=== PATIENT | male | born 1950 | race Caucasian/White ===

== ENCOUNTER 2019-01-08 21:00 | Emergency (ER) | payer MEDICARE, OTHER, SELFPAY ==
[2019-01-08 21:04] VITALS: BP 188/81; PULSE 77; RESP 18; TEMP 36.6; O2SAT 98
--- NOTE | 2019-01-08 21:28 | ED.MALEGU ---
HPI - Male Genitourinary General Chief complaint: Urogenital-Male Stated complaint: KIDNEY STONES Time Seen by Provider: 01/08/19 21:11 Source: patient Mode of arrival: ambulatory Limitations: no limitations History of Present Illness HPI Narrative: The patient was diagnosed with left ureter stones and a left renal stone 15 December 2018. He lives in [place], the CT confirming the diagnosis was done there. He had his since been traveling on motorcycles, greater than 2000 miles. He is not screened his urine, but is not notice passing the stone. His urine output has been normal. He has no hematuria or dysuria. He has been treating symptoms with Motrin, which has been adequate to about 3 hours ago. He now has left severe flank pain. he has no fever or chills. He has no nausea vomiting. in addition ibuprofen he is taking Flomax. He has remote history of a 1st kidney stone 18 years ago. Related Data Previous Rx's Medication Instructions Recorded tramadol 50 mg PO Q6-8H PRN #20 tab 01/08/19 Allergies Allergy/AdvReac Type Severity Reaction Status Date / Time No Known Drug Allergies Allergy Verified 01/08/19 21:06 Review of Systems Review of Systems ROS Unobtainable: All systems reviewed & are unremarkable except as noted in HPI and below Constitutional Denies chills, Denies fever(s) and Denies weakness Cardiovascular Denies chest pain, Denies lightheadedness, Denies palpitations and Denies dyspnea Respiratory Denies dyspnea Gastrointestinal Gastrointestinal: Denies abdominal pain, Denies change in bowel habits, Denies nausea and Denies vomiting Genitourinary Denies hematuria, Reports flank pain (Left side), Denies testicular pain and Denies urinary frequency Musculoskeletal Reports back pain and Denies muscle weakness Integumentary/Breasts Denies rash Neurologic Denies weakness Endocrine Denies palpitations [facility] Medical History (Updated 01/08/19 @ 23:51 by Angel Nicole MD) Kidney stones (Acute) Surgical History (Updated 01/08/19 @ 21:37 by Angel Nicole MD) No pertinent past surgical history (Acute) Social History (Updated 01/08/19 @ 21:38 by Angel Nicole MD) Smoking Status: Former smoker additional social history: The patient resides in [place], is visiting locally. Social History (Updated 01/08/19 @ 21:38 by Angel Nicole MD) Smoking Status: Former smoker additional social history: The patient resides in [place], is visiting locally. Exam Initial Vital Signs Initial Vital Signs: Vital Signs Temperature 97.8 F 01/08/19 21:04 Pulse Rate 77 01/08/19 21:04 Respiratory Rate 18 01/08/19 21:04 Blood Pressure 188/81 H 01/08/19 21:04 Pulse Oximetry 98 01/08/19 21:04 Const General: cooperative and well developed Nutritional Appearance: well nourished Orientation: alert, awake and oriented x3 Resp Auscultation: clear to auscultation bilaterally Cardio Rate: regular rate Rhythm: regular rhythm Heart Sounds: S1 normal, S2 normal and no murmurs GI Inspection: non-distended Palpation: soft, no hepatosplenomegaly, No guarding and No tender Auscultation: normal bowel sounds Back/Spine/Pelvis Back: No CVA tenderness Skin General: no rashes or lesions noted and No petechiae Neuro General: alert, oriented x3, gait normal and no focal motor deficits Speech: speech normal Extrem General: No calf tenderness and No edema Psych Appearance: well kempt Mental Status: mental status grossly normal Attitude: cooperative Thought Content: normal Judgment: judgment good Course Course Narrative: The patient's pain was improved with IV Dilaudid. He take Motrin within 3 hours of arrival, Toradol was not given. He has no plans to return home to [place] for about the next 3 weeks. His urine is clear, but his clinical history suggests he may have an an obstruction due left ureter associated with kidney stones. He was referred to a local urologist, he may require urine but Urology attention before return to his home [place]. Orders Ordered: ED Orders 01/08/19 21:25 CMP [Comprehensive Metabolic Panel] Stat Complete Blood Count AUTO DIFF Stat Prothrombin Time INR Stat 01/08/19 21:27 XR KUB Stat Discontinued Medications Hydromorphone HCl (Dilaudid) 1 mg IV NOW ONE Stop: 01/08/19 21:13 Last Admin: 01/08/19 21:29 Dose: 1 mg Sodium Chloride (Normal Saline 0.9%) 1,000 mls @ 1,000 mls/hr IV BOLUS ONE Stop: 01/08/19 22:11 Last Infusion: 01/08/19 22:35 Dose: 1,000 mls/hr Admin: 01/08/19 21:29 Dose: 1,000 mls/hr Tramadol HCl (Ultram 50mg Prepack) 1 bottle MISC SEEINSTR ONE Stop: 01/08/19 23:29 Last Admin: 01/08/19 23:35 Dose: 1 bottle Vital Signs - 8 hr 01/08/19 21:04 01/09/19 00:03 Temperature 97.8 F Pulse Rate 77 71 Respiratory Rate 18 18 Blood Pressure 188/81 H 168/80 H Pulse Oximetry 98 98 MDM - Male Genitourinary Lab Data Result diagrams: 01/08/19 21:25 01/08/19 21:25 Lab Results 01/08/19 01/08/19 01/08/19 Range/Units 21:25 21:25 21:25 WBC 10.5 (4.5-11.0) X10^3/uL RBC 4.16 L (4.5-5.9) X10^6/uL Hgb 12.6 L (13.5-17.5) g/dL Hct 36.2 L (41-53) % MCV 87.0 (80-100) fL MCH 30.2 (26-34) PG MCHC 34.8 (30-36) % RDW 13.0 (11.6-14.8) % Plt Count 287 (150-400) X10^3/uL Neut % (Auto) 82.6 H (50-75) % Lymph % (Auto) 8.4 L (25-40) % [place] % (Auto) 7.7 (3-14) % Eos % (Auto) 0.7 L (2-4) % Baso % (Auto) 0.6 (0-2) % Neut # (Auto) 8700 H (3244-5256) /uL Lymph # (Auto) 900 L (2411-6265) /uL [place] # (Auto) 800 (0-900) /uL Eos # (Auto) 100 (0-450) /uL Baso # (Auto) 100 (0-100) /uL PT 13.7 H (10.1-12.7) SECONDS INR 1.2 (0.9-1.3) Sodium 135 L (137-145) mmol/L Potassium 4.0 (3.4-5.1) mmol/L Chloride 101 (98-107) mmol/L Carbon Dioxide 23 (22-32) mmol/L BUN 24 H (9-20) mg/dL Creatinine 1.40 H (0.66-1.25) mg/dL Estimated GFR 50.5 L (>60) mL/min BUN/Creatinine Ratio 17.1 (6-22) Glucose 167 H (80-110) mg/dL Calcium 9.2 (8.4-10.2) mg/dL Total Bilirubin 0.6 (0.2-1.3) mg/dL AST 24 (17-59) IU/L ALT 26 (21-72) IU/L Alkaline Phosphatase 110 (38-126) U/L Total Protein 7.2 (6.3-8.2) g/dL Albumin 3.9 (3.5-5.0) g/dL Globulin 3.3 (1.7-4.1) g/dL Albumin/Globulin Ratio 1.2 (1.0-2.8) Urine Dip Bedside Urine Glucose Negative Bedside Urine Bilirubin - Negative Bedside Urine Ketone - Negative Urine Specific [place] 1.015 Bedside Urine Occult Blood - Negative Bedside Urine pH 6.0 Bedside Urine Protein - Negative Bedside Urine Urobilinogen - Negative Bedside Urine Nitrite - Negative Bedside Urine Leukocytes - Negative Esterase Imaging Data KUB XR:: Radiologist's impression: [address] [address] XRay Report Signed Patient: Emmett Meyer LMR#: [id number] : 2Acct:[id number] Age/Sex: 68 / MDate of Service: 01/08/19 Loc: ED Accession Number: [id number] Procedure: XR KUB Ordering Provider: Angel Nicole MD PROCEDURE: XR KUB INDICATIONS: Recent left proximal ureter stones x2and a 5 mm renal stone. TECHNIQUE: One view of the abdomen acquired. COMPARISON: None. FINDINGS: Surgical changes and devices: None. Bowel: Bowel gas pattern is normal. Soft tissues: Within the abdomen in the expected position of the lower third collecting system of the left kidney there is a 3 x 4 mm calculus and in the expected position of the middle third of the left ureter there is a 4 x 5 mm calculus. More inferiorly and is potential areas of the distal right and left ureter is ovoid calcifications are present, potentially urinary tract stones within the ureters. However, pelvic phleboliths also could produce this appearance.. Visualized solid organ contours appear normal in size. Bones: No suspicious bony lesions. IMPRESSION: Multiple ovoid calcifications ranging in size from 2 mm to 5 mm are present along the potential course of the ureters bilaterally through the lower abdomen and pelvis, and also there is a ovoid calculus versus phlebolith overlying the expected position of the lower third left renal collecting system. All of these calcifications could represent phleboliths. CT KUB couldn't accurately establish their position. Dictated by: Haider Casper M.D. on 01/08/2019 at 21:46 Approved by: Haider Casper M.D. on 01/08/2019 at 21:49 Discharge Plan Departure Patient Disposition: Home Clinical Impression: Kidney stone on left side Discharge Date/Time: 01/08/19 23:52 Interventions: ED Discharge Assessment Last Done: 01/09/19 00:03 Instructions: DI for Kidney Stones Activity Restrictions/Additional Instructions: Continue taking ibuprofen 600 mg every 6 hours as needed for pain. Tramadol every 6 hours as necessary for added pain control. Drink plenty of water. Screening her urine looking for a stone. You need to make arrange follow-up with urologist when she returns home to [place], or follow up with a local urologist. I will give you contact information for Dr. Chappell. Call his office Friday for an appointment. Return to the ER as necessary. Prescriptions: New tramadol 50 mg tablet 50 mg PO Q6-8H PRN (Reason: pain) Qty: 20 RF: 0 Referrals: David Chappell MD [Physician] -
[2019-01-08] MEDS: HYDROMORPHONE 1 MG INJ IV (21:29)
[2019-01-08] MEDS: SODIUM CHLORIDE 0.9% 1,000 ML 1000 ML IV (21:29)
--- NOTE | 2019-01-08 21:31 | ED_ITS ---
HPI - Male Genitourinary General Chief complaint: Urogenital-Male Stated complaint: KIDNEY STONES Time Seen by Provider: 01/08/19 21:11 Source: patient Mode of arrival: ambulatory Limitations: no limitations History of Present Illness HPI Narrative: The patient was diagnosed with left ureter stones and a left renal stone 15 December 2018. He lives in [place], the CT confirming the diagnosis was done there. He had his since been traveling on motorcycles, greater than 2000 miles. He is not screened his urine, but is not notice passing the stone. His urine output has been normal. He has no hematuria or dysuria. He has been treating symptoms with Motrin, which has been adequate to about 3 hours ago. He now has left severe flank pain. he has no fever or chills. He has no nausea vomiting. in addition ibuprofen he is taking Flomax. He has remote history of a 1st kidney stone 18 years ago. Related Data Previous Rx's Medication Instructions Recorded tramadol 50 mg PO Q6-8H PRN #20 tab 01/08/19 Allergies Allergy/AdvReac Type Severity Reaction Status Date / Time No Known Drug Allergies Allergy Verified 01/08/19 21:06 Review of Systems Review of Systems ROS Unobtainable: All systems reviewed & are unremarkable except as noted in HPI and below Constitutional Denies chills, Denies fever(s) and Denies weakness Cardiovascular Denies chest pain, Denies lightheadedness, Denies palpitations and Denies dyspnea Respiratory Denies dyspnea Gastrointestinal Gastrointestinal: Denies abdominal pain, Denies change in bowel habits, Denies nausea and Denies vomiting Genitourinary Denies hematuria, Reports flank pain (Left side), Denies testicular pain and Denies urinary frequency Musculoskeletal Reports back pain and Denies muscle weakness Integumentary/Breasts Denies rash Neurologic Denies weakness Endocrine Denies palpitations [facility] Medical History (Updated 01/08/19 @ 23:51 by Angel Nicole MD) Kidney stones (Acute) Surgical History (Updated 01/08/19 @ 21:37 by Angel Nicole MD) No pertinent past surgical history (Acute) Social History (Updated 01/08/19 @ 21:38 by Angel Nicole MD) Smoking Status: Former smoker additional social history: The patient resides in [place], is visiting locally. Social History (Updated 01/08/19 @ 21:38 by Angel Nicole MD) Smoking Status: Former smoker additional social history: The patient resides in [place], is visiting locally. Exam Initial Vital Signs Initial Vital Signs: Vital Signs Temperature 97.8 F 01/08/19 21:04 Pulse Rate 77 01/08/19 21:04 Respiratory Rate 18 01/08/19 21:04 Blood Pressure 188/81 H 01/08/19 21:04 Pulse Oximetry 98 01/08/19 21:04 Const General: cooperative and well developed Nutritional Appearance: well nourished Orientation: alert, awake and oriented x3 Resp Auscultation: clear to auscultation bilaterally Cardio Rate: regular rate Rhythm: regular rhythm Heart Sounds: S1 normal, S2 normal and no murmurs GI Inspection: non-distended Palpation: soft, no hepatosplenomegaly, No guarding and No tender Auscultation: normal bowel sounds Back/Spine/Pelvis Back: No CVA tenderness Skin General: no rashes or lesions noted and No petechiae Neuro General: alert, oriented x3, gait normal and no focal motor deficits Speech: speech normal Extrem General: No calf tenderness and No edema Psych Appearance: well kempt Mental Status: mental status grossly normal Attitude: cooperative Thought Content: normal Judgment: judgment good Course Course Narrative: The patient's pain was improved with IV Dilaudid. He take Motrin within 3 hours of arrival, Toradol was not given. He has no plans to return home to [place] for about the next 3 weeks. His urine is clear, but his clinical history suggests he may have an an obstruction due left ureter associated with kidney stones. He was referred to a local urologist, he may require urine but Urology attention before return to his home [place]. Orders Ordered: ED Orders 01/08/19 21:25 CMP [Comprehensive Metabolic Panel] Stat Complete Blood Count AUTO DIFF Stat Prothrombin Time INR Stat 01/08/19 21:27 XR KUB Stat Discontinued Medications Hydromorphone HCl (Dilaudid) 1 mg IV NOW ONE Stop: 01/08/19 21:13 Last Admin: 01/08/19 21:29 Dose: 1 mg Sodium Chloride (Normal Saline 0.9%) 1,000 mls @ 1,000 mls/hr IV BOLUS ONE Stop: 01/08/19 22:11 Last Infusion: 01/08/19 22:35 Dose: 1,000 mls/hr Admin: 01/08/19 21:29 Dose: 1,000 mls/hr Tramadol HCl (Ultram 50mg Prepack) 1 bottle MISC SEEINSTR ONE Stop: 01/08/19 23:29 Last Admin: 01/08/19 23:35 Dose: 1 bottle Vital Signs - 8 hr 01/08/19 21:04 01/09/19 00:03 Temperature 97.8 F Pulse Rate 77 71 Respiratory Rate 18 18 Blood Pressure 188/81 H 168/80 H Pulse Oximetry 98 98 MDM - Male Genitourinary Lab Data Result diagrams: 01/08/19 21:25 01/08/19 21:25 Lab Results 01/08/19 01/08/19 01/08/19 Range/Units 21:25 21:25 21:25 WBC 10.5 (4.5-11.0) X10^3/uL RBC 4.16 L (4.5-5.9) X10^6/uL Hgb 12.6 L (13.5-17.5) g/dL Hct 36.2 L (41-53) % MCV 87.0 (80-100) fL MCH 30.2 (26-34) PG MCHC 34.8 (30-36) % RDW 13.0 (11.6-14.8) % Plt Count 287 (150-400) X10^3/uL Neut % (Auto) 82.6 H (50-75) % Lymph % (Auto) 8.4 L (25-40) % [place] % (Auto) 7.7 (3-14) % Eos % (Auto) 0.7 L (2-4) % Baso % (Auto) 0.6 (0-2) % Neut # (Auto) 8700 H (2471-8602) /uL Lymph # (Auto) 900 L (7214-7962) /uL [place] # (Auto) 800 (0-900) /uL Eos # (Auto) 100 (0-450) /uL Baso # (Auto) 100 (0-100) /uL PT 13.7 H (10.1-12.7) SECONDS INR 1.2 (0.9-1.3) Sodium 135 L (137-145) mmol/L Potassium 4.0 (3.4-5.1) mmol/L Chloride 101 (98-107) mmol/L Carbon Dioxide 23 (22-32) mmol/L BUN 24 H (9-20) mg/dL Creatinine 1.40 H (0.66-1.25) mg/dL Estimated GFR 50.5 L (>60) mL/min BUN/Creatinine Ratio 17.1 (6-22) Glucose 167 H (80-110) mg/dL Calcium 9.2 (8.4-10.2) mg/dL Total Bilirubin 0.6 (0.2-1.3) mg/dL AST 24 (17-59) IU/L ALT 26 (21-72) IU/L Alkaline Phosphatase 110 (38-126) U/L Total Protein 7.2 (6.3-8.2) g/dL Albumin 3.9 (3.5-5.0) g/dL Globulin 3.3 (1.7-4.1) g/dL Albumin/Globulin Ratio 1.2 (1.0-2.8) Urine Dip Bedside Urine Glucose Negative Bedside Urine Bilirubin - Negative Bedside Urine Ketone - Negative Urine Specific [place] 1.015 Bedside Urine Occult Blood - Negative Bedside Urine pH 6.0 Bedside Urine Protein - Negative Bedside Urine Urobilinogen - Negative Bedside Urine Nitrite - Negative Bedside Urine Leukocytes - Negative Esterase Imaging Data KUB XR:: Radiologist's impression: [address] [address] XRay Report Signed Patient: Emmett Meyer LMR#: [id number] : 2Acct:[id number] Age/Sex: 68 / MDate of Service: 01/08/19 Loc: ED Accession Number: [id number] Procedure: XR KUB Ordering Provider: Angel Nicole MD PROCEDURE: XR KUB INDICATIONS: Recent left proximal ureter stones x2and a 5 mm renal stone. TECHNIQUE: One view of the abdomen acquired. COMPARISON: None. FINDINGS: Surgical changes and devices: None. Bowel: Bowel gas pattern is normal. Soft tissues: Within the abdomen in the expected position of the lower third collecting system of the left kidney there is a 3 x 4 mm calculus and in the expected position of the middle third of the left ureter there is a 4 x 5 mm calculus. More inferi gabriele and is potential areas of the distal right and left ureter is ovoid calcifications are present, potentially urinary tract stones within the ureters. However, pelvic phleboliths also could produce this appearance.. Visualized solid organ contours appear normal in size. Bones: No suspicious bony lesions. IMPRESSION: Multiple ovoid calcifications ranging in size from 2 mm to 5 mm are present along the potential course of the ureters bilaterally through the lower abdomen and pelvis, and also there is a ovoid calculus versus phlebolith overlying the expected position of the lower third left renal collecting system. All of these calcifications could represent phleboliths. CT KUB couldn't accurately establish their position. Dictated by: Haider Casper M.D. on 01/08/2019 at 21:46 Approved by: Haider Casper M.D. on 01/08/2019 at 21:49 Discharge Plan Departure Patient Disposition: Home Clinical Impression: Kidney stone on left side Discharge Date/Time: 01/08/19 23:52 Interventions: ED Discharge Assessment Last Done: 01/09/19 00:03 Instructions: DI for Kidney Stones Activity Restrictions/Additional Instructions: Continue taking ibuprofen 600 mg every 6 hours as needed for pain. Tramadol every 6 hours as necessary for added pain control. Drink plenty of water. Screening her urine looking for a stone. You need to make arrange follow-up with urologist when she returns home to [place], or follow up with a local urologist. I will give you contact information for Dr. Chappell. Call his office Friday for an appointment. Return to the ER as necessary. Prescriptions: New tramadol 50 mg tablet 50 mg PO Q6-8H PRN (Reason: pain) Qty: 20 RF: 0 Referrals: David Chappell MD [Physician] -
[2019-01-08 21:32] LABS: Add Manual Diff / Slide Review NO; Basophils Absolute Auto 100 /uL (0-100); Basophils Percent Auto 0.6 % (0-2); Eosinophils Absolute Auto 100 /uL (0-450); Eosinophils Percent Auto 0.7 % (2-4); Hematocrit 36.2 % (41-53); Hemoglobin 12.6 g/dL (13.5-17.5); Lymphocytes Absolute Auto 900 /uL (1100-4500); Lymphocytes Percent Auto 8.4 % (25-40); Mean Corpuscular HGB Conc 34.8 % (30-36); Mean Corpuscular Hemoglobin 30.2 PG (26-34); Monocytes Absolute Auto 800 /uL (0-900); Monocytes Percent Auto 7.7 % (3-14); Neutrophils Absolute Auto 8700 /uL (1500-7000); Neutrophils Percent Auto 82.6 % (50-75); Platelet Count 287 X10^3/uL (150-400); Red Blood Cell Count 4.16 X10^6/uL (4.5-5.9); White Blood Cell Count 10.5 X10^3/uL (4.5-11.0)
[2019-01-08 21:38] LABS: INR 1.2 (0.9-1.3); Prothrombin Time 13.7 SECONDS (10.1-12.7)
[2019-01-08 21:43] LABS: Alanine Aminotransferase 26 IU/L (21-72); Albumin 3.9 g/dL (3.5-5.0); Albumin Globulin Ratio 1.2 (1.0-2.8); Alkaline Phosphatase 110 U/L (38-126); Aspartate Aminotransferase 24 IU/L (17-59); BUN Creatinine Ratio 17.1 (6-22); Bilirubin Total 0.6 mg/dL (0.2-1.3); Blood Urea Nitrogen 24 mg/dL (9-20); Calcium 9.2 mg/dL (8.4-10.2); Carbon Dioxide 23 mmol/L (22-32); Chloride 101 mmol/L (98-107); Estimated Glomerular Filt Rate 50.5 mL/min (>60); Globulin 3.3 g/dL (1.7-4.1); Glucose 167 mg/dL (80-110); HEMOLYSIS < 15 (0-50); Sodium 135 mmol/L (137-145); Total Protein 7.2 g/dL (6.3-8.2)
--- NOTE | 2019-01-08 22:32 | PC.NURSE ---
Pt reports left flank pain, was diagnosed with left ureter stones and a left renal stone on December 15 2018 in [place] where he lives. Denies hematuria, dysuria, nausea or fever. He has been treating symptoms with Motrin, which has been adequate to about 3 hours ago. He now has left severe flank pain. Taking ibuprofen and flomax.
[2019-01-08] MEDS: TRAMADOL 50 MG PREPACK 1 BOTTLE MISC (23:35)
[2019-01-09 00:03] VITALS: BP 168/80; PULSE 71; RESP 18; O2SAT 98
== END 2019-01-08 23:52 | disposition home or self-care (01) ==
PROVIDERS: Emergency Provider Emergency Medicine
DX: N20.0 Calculus of kidney (principal)
CPT/HCPCS: 36591; 74018; 80053; 81003; 85025; 85610; 96361; 96374; 99283; 99284; J1170